=== PATIENT | female | born 1990 | race Caucasian/White ===

== ENCOUNTER 2022-02-10 11:00 | Outpatient (CLI) | payer OTHER | END 2022-02-10 11:26 | disposition home or self-care (01) | LOC: NST 11:00 | PROVIDERS: ATTEND Obstetrics & Gynecology | DX: Z34.83 Encounter for supervision of other normal pregnancy, third trimester (principal) ==

== ENCOUNTER 2022-03-29 08:23 | Outpatient (CLI) | payer OTHER ==
[2022-03-30] MEDS ORDERED: PRENATAL TABLE1 EAC3 PO (07:08)
== END 2022-03-29 09:03 | disposition home or self-care (01) ==
LOC: NST 08:23
PROVIDERS: ATTEND Obstetrics & Gynecology Maternal & Fetal Medicine
DX: Z34.83 Encounter for supervision of other normal pregnancy, third trimester (principal)

== ENCOUNTER 2022-03-30 05:55 | Inpatient (IN) | payer OTHER ==
[~2022-03-30] VITALS: Ht 177.8 cm; Wt 4.1 kg
[2022-03-30] MEDS ORDERED: PRENATAL TABLE1 EAC3 PO (07:08)
== END 2022-04-01 13:44 | disposition home or self-care (01) | DRG 788 ==
LOC: LDR 05:55 → OB/GYN 05:55
PROVIDERS: ADMIT Obstetrics & Gynecology Maternal & Fetal Medicine; ATTEND Obstetrics & Gynecology Maternal & Fetal Medicine
PROC: 4A1HXCZ Monitoring of Products of Conception, Cardiac Rate, External Approach (ICD-10-PCS; 2022-03-30)
PROC: 10D00Z1 Extraction of Products of Conception, Low, Open Approach (ICD-10-PCS; principal; 2022-03-30 14:00)
DX: O36.63X0 Maternal care for excessive fetal growth, third trimester, not applicable or unspecified (principal); O62.0 Primary inadequate contractions; O99.820 Streptococcus B carrier state complicating pregnancy; Z3A.39 39 weeks gestation of pregnancy; Z37.0 Single live birth; Z20.822 Contact with and (suspected) exposure to COVID-19

== ENCOUNTER 2024-04-12 12:31 | Inpatient (IN) | payer OTHER ==
[~2024-04-12] VITALS: Ht 177.8 cm; Wt 141.1 kg
[~2024-04-12 12:31] MED LIST: PRENATAL TABLE1 EAC3 PO
[2024-04-12] MEDS ORDERED: hydrALAZINE HCL 20 MG VIAL ONE (13:48)
[2024-04-12] MEDS ORDERED: hydrALAZINE HCL 20 MG VIAL IV ONE ×2 (14:00→15:00)
[2024-04-12] MEDS ORDERED: RINGERS SOLUTION,LACTATED 1,000 ML IV SCH (14:00)
[2024-04-12] MEDS ORDERED: MAGNESIUM SULFATE IN WATER 4 GM/100 ML PIGGYBACK IV ONE (14:26)
[2024-04-12] MEDS ORDERED: MAGNESIUM SULFATE IN WATER 0.04 GM/ML IV.SOLN IV ONE (14:27)
[2024-04-12 14:47] LABS: HEMATOCRIT 40.4 % (36.0-45.00); HEMOGLOBIN 14.3 g/dL (12.0-15.00); MEAN CELL VOLUME 91.3 fL (80.00-100.00); MEAN CORPUSCULAR HEMOGLOBIN 32.4 pg (27.00-32.0); MEAN CORPUSCULAR HGB CONC 35.5 g/dl (32.0-36.0); RED BLOOD COUNT 4.43 M/uL (4.00-6.00); RED CELL DISTRIBUTION WIDTH 14.1 % (11.5-14.5)
[2024-04-12 14:48] LABS: PLATELET COUNT 125 K/uL (150-450)
[2024-04-12] MEDS ORDERED: MAGNESIUM SULFATE IN WATER 4 GM/100 ML PIGGYBACK IV STA (14:49)
[2024-04-12] MEDS ORDERED: MAGNESIUM SULFATE IN WATER 500 ML IV SCH (15:00)
[2024-04-12 15:23] LABS: INR < 0.93; PARTIAL THROMBOPLASTIN TIME 32.2 SECONDS (22.0-34.0); PROTHROMBIN TIME 10.1 SECONDS (9.0-11.5)
[2024-04-12 16:12] LABS: PH,URINE 6.5 (5.0-8.0); URINE APPEARANCE Cloudy; URINE BILIRRUBIN Negative (NEGATIVE); URINE BLOOD Trace; URINE COLOR Yellow; URINE GLUCOSE Negative (NEGATIVE); URINE KETONE Trace (NEGATIVE); URINE LEUKOCYTE Negative; URINE NITRATE Negative; URINE PROTEIN >=1000 (NEGATIVE); URINE UROBILINOGEN 0.2 E.U./dl
[2024-04-12 16:13] LABS: URINE BACTERIA 2285.5 uL (0.0-1933); URINE CAST 16.03 uL (0.0-1.40); URINE EPITHELIAL CELLS 20.5 uL (0.0-38.8); URINE RBC 52.8 uL (0.0-20.8); URINE WBC 52.2 uL (0.0-23.2)
[2024-04-12] MEDS ORDERED: BETAMETHASONE ACETATE,SOD PHOS 30 MG/5 ML ML IM STA (16:16)
[2024-04-12] MEDS ORDERED: FUROsemide 40 MG/4 ML VIAL IV ONE (16:30)
[2024-04-12 16:31] LABS: ALBUMIN 1.6 gm/dL (3.4-5.0); BILIRUBIN TOTAL 0.3 mg/dL (0.3-1.2); CALCIUM 7.8 mg/dL (8.5-10.1); CREATININE SERUM 0.97 mg/dL (0.55-1.02); GFR 66.98; GLOBULINA 3.3 G/DL (2.4-3.5); POTASSIUM 3.96 mEq/L (3.5-5.1); TOTAL PROTEIN 4.9 gm/dL (6.4-8.2)
[2024-04-12] MEDS ORDERED: LABETALOL HCL 200 MG TABLET PO SCH (17:00)
[2024-04-12] MEDS ORDERED: ACETAMINOPHEN 500 MG GEL..CAP PO ONE ×2 (19:48→20:00)
[2024-04-13] MEDS ORDERED: BETAMETHASONE ACETATE,SOD PHOS 30 MG/5 ML ML IM NR (16:30)
== END 2024-04-12 22:15 | disposition designated cancer center or children's hospital (05) | DRG 833 ==
LOC: NST 12:31 → LDR 13:33
PROVIDERS: ADMIT Obstetrics & Gynecology Gynecology; ATTEND Obstetrics & Gynecology Gynecology
PROC: 4A1HXCZ Monitoring of Products of Conception, Cardiac Rate, External Approach (ICD-10-PCS; principal; 2024-04-12)
DX: O14.93 Unspecified pre-eclampsia, third trimester (principal); Z3A.33 33 weeks gestation of pregnancy; Z20.822 Contact with and (suspected) exposure to COVID-19